=== PATIENT | male | born 1980 | race Two or more races ===

== ENCOUNTER 2019-02-15 22:32 | Emergency (ER) | payer OTHER ==
[~2019-02-15] VITALS: Ht 182.9 cm; Wt 140.6 kg
[2019-02-15 22:40] VITALS: BP 122/84
--- NOTE | 2019-02-15 23:00 | Emergency Room Report ---
History of Present Illness General Chief Complaint: Overdose Source: Patient Present Illness HPI This is a 38-year-old male with a history of heroin abuse. He said he took a bunch of heroin about 2 hours ago. He felt jittery and dizzy. So he called 911. He denies suicidal thoughts homicidal thought. Denies any hallucination or delusion He was walking per EMS. No Narcan given. Allergies: Coded Allergies: No Known Allergies (Unverified , 02/15/19) Patient History Past Medical History: see triage record, old chart reviewed Past Surgical History: none Pertinent Family History: none Social History: Reports: alcohol use, drug use Immunizations: other Reviewed Nursing Documentation: PMH: Agreed; PSxH: Agreed Review of Systems Eye: Denies: eye pain, blurred vision ENT: Denies: ear pain, nose congestion, throat swelling Respiratory: Denies: cough, shortness of breath Cardiovascular: Denies: chest pain, palpitations Gastrointestinal: Denies: abdominal pain, diarrhea, nausea, vomiting Musculoskeletal: Denies: back pain, joint pain Skin: Denies: rash Neurological: Denies: headache, numbness Endocrine: Denies: increased thirst, increased urine Hematologic/Lymphatic: Denies: easy bruising All Other Systems: negative except mentioned in HPI Physical Exam Vital Signs Date Time Temp Pulse Resp B/P (MAP) Pulse Ox O2 Delivery O2 Flow Rate FiO2 02/15/19 22:36 98.4 98 18 140/95 (110) 95 Room Air 02/15/19 22:41 96 vitals with hypertension Sp02 EP Interpretation: reviewed, normal General Appearance: well appearing, no apparent distress, alert Head: normocephalic, atraumatic Eyes: bilateral eye PERRL, bilateral eye EOMI ENT: hearing grossly normal, normal pharynx Neck: full range of motion, supple, no meningismus Respiratory: chest non-tender, lungs clear, normal breath sounds Cardiovascular #1: regular rate, rhythm, no murmur Gastrointestinal: normal bowel sounds, non tender, no mass, no organomegaly, no bruit, non-distended Musculoskeletal: back normal, gait/station normal, normal range of motion Psychiatric: mood/affect normal Medical Decision Making Diagnostic Impression: Primary Impression: Heroin abuse ER Course Patient presents with heroin abuse. No overdose. No suicidal thoughts homicidal thought. No criteria for 5150. Will discharge with referral to rehab. This patient is a chronic risk of self injury due to poor impulse control, limited coping skills, and judgment intermittently impaired by intoxication. I believe that the available clinical evidence to suggest that these characteristics derived primarily from personality disorder and are likely very stable over time. Hospitalization would likely attenuate risk of self-harm only during detention period, without lasting risk reduction. Serious self-harm , while possible, would likely be inadvertent, and because of impulsivity, and foreseeable. For these reasons, I do not believe hospitalization would provide meaningful reduction in risk of self-harm. Last Vital Signs Date Time Temp Pulse Resp B/P (MAP) Pulse Ox O2 Delivery O2 Flow Rate FiO2 02/15/19 22:41 90 17 Room Air 96 02/15/19 22:40 98.4 122/84 96 Status: improved Disposition: HOME, SELF-CARE Condition: Stable Additional Instructions: Abstain from drugs. Follow-up with rehab within a week. Return if worse. Magan Soler MD Feb 15, 2019 23:00
[2019-02-15 23:20] VITALS: BP 118/84
== END 2019-02-15 23:20 | disposition home or self-care (01) ==
LOC: EDBD 22:32 → EMR 23:07
DX: F11.10 Opioid abuse, uncomplicated (principal)
CPT/HCPCS: 99282

== ENCOUNTER 2019-02-15 23:47 | Emergency (ER) | payer OTHER ==
[~2019-02-15] VITALS: Ht 182.9 cm; Wt 140.6 kg
[2019-02-15 23:57] VITALS: BP 137/78
--- NOTE | 2019-02-15 23:57 | NUR ---
ED Nurse Note: BIBA 861 c/o behavior complaint. Pt got discharged less tahn 1 hr ago and came back. No physical issue. VSS
--- NOTE | 2019-02-16 00:15 | Emergency Room Report ---
History of Present Illness General Chief Complaint: Behavioral Complaint Source: Patient Present Illness HPI Is a 38-year-old male who I just saw on discharge. On being discharged he threw his paperwork on the ground. He left here and called 911. He presents with chief complaint of heroin abuse. He told EMS and police that he never been here before. Even though he was here less than 5 to 10 minutes ago. He denies any trauma. He denies any suicidal thoughts homicidal thought. He is requesting somewhere to lay down and food. No Injury. Allergies: Coded Allergies: No Known Allergies (Unverified , 02/15/19) Patient History Past Medical History: see triage record, old chart reviewed Past Surgical History: none Social History: Reports: smoking, drug use Immunizations: other Reviewed Nursing Documentation: PMH: Agreed; PSxH: Agreed Review of Systems Eye: Denies: eye pain, blurred vision ENT: Denies: ear pain, nose congestion, throat swelling Respiratory: Denies: cough, shortness of breath Cardiovascular: Denies: chest pain, palpitations Gastrointestinal: Denies: abdominal pain, diarrhea, nausea, vomiting Musculoskeletal: Denies: back pain, joint pain Skin: Denies: rash Neurological: Denies: headache, numbness Endocrine: Denies: increased thirst, increased urine Hematologic/Lymphatic: Denies: easy bruising All Other Systems: negative except mentioned in HPI Physical Exam Vital Signs Date Time Temp Pulse Resp B/P (MAP) Pulse Ox O2 Delivery O2 Flow Rate FiO2 02/15/19 23:52 98.1 112 20 137/78 (97) 98 Room Air Vitals with tachycardia Sp02 EP Interpretation: reviewed, normal General Appearance: well appearing, no apparent distress, alert, obese Head: normocephalic, atraumatic Eyes: bilateral eye PERRL, bilateral eye EOMI ENT: hearing grossly normal, normal pharynx Neck: full range of motion, supple, no meningismus Respiratory: chest non-tender, lungs clear, normal breath sounds Cardiovascular #1: regular rate, rhythm, no murmur Gastrointestinal: normal bowel sounds, non tender, no mass, no organomegaly, no bruit, non-distended Musculoskeletal: back normal, gait/station normal, normal range of motion Psychiatric: mood/affect normal Medical Decision Making Diagnostic Impression: Primary Impression: Heroin abuse ER Course Patient with substance abuse. I suspect that he wants a place to sleep and food to eat. He has no criteria for 5150. Denies any homicidal thoughts or suicidal thoughts. This patient is a chronic risk of self injury due to poor impulse control, limited coping skills, and judgment intermittently impaired by intoxication. I believe that the available clinical evidence to suggest that these characteristics derived primarily from personality disorder and are likely very stable over time. Hospitalization would likely attenuate risk of self-harm only during chcf period, without lasting risk reduction. Serious self-harm , while possible, would likely be inadvertent, and because of impulsivity, and foreseeable. For these reasons, I do not believe hospitalization would provide meaningful reduction in risk of self-harm. After sitting here for about 30 minutes, patient got up and left. He did not take his paperwork. Last Vital Signs Date Time Temp Pulse Resp B/P (MAP) Pulse Ox O2 Delivery O2 Flow Rate FiO2 02/15/19 23:57 112 20 Room Air 02/15/19 23:57 98.1 137/78 98 Status: improved Disposition: HOME, SELF-CARE Condition: Stable Referrals: NOT CHOSEN IPA/,REFERRING (PCP) Patient Instructions: Self-Destructive Behavior Additional Instructions: Stop using drugs. Follow-up with rehab within a week. Return if worse. Magan Soler MD Feb 16, 2019 00:15
[2019-02-16 00:30] VITALS: BP 137/78
--- NOTE | 2019-02-16 00:30 | NUR ---
ED Nurse Note: Pt left without signing paperwork
== END 2019-02-16 00:30 | disposition home or self-care (01) ==
LOC: EDBD 23:47 → EMR 23:59
DX: F11.10 Opioid abuse, uncomplicated (principal); F17.200 Nicotine dependence, unspecified, uncomplicated
CPT/HCPCS: 99282